=== PATIENT | female | born 1970 | race Caucasian/White ===

== ENCOUNTER 2018-01-08 00:05 | Observation (INO) | payer MEDICAID ==
[2018-01-08] VITALS (11 sets, daily range): BP systolic 124–161; BP diastolic 58–73; PULSE 88–126; RESP 18–20; TEMP 96–98.9; O2SAT 96–98
[~2018-01-08 00:05] MED LIST: ACETAMINOPHEN 325 MG TAB PO PRN; KETOROLAC TROMETHAMINE 30 MG/ML (IVP) VIAL IV PUSH PRN; NALOXONE HCL 0.4 MG/ML AMP IV PUSH PRN; ONDANSETRON HCL 4 MG/2 ML VIAL IVP PRN; RESP: ALBUTEROL 2.5 MG/IPRATROPIUM 0.5 MG NEB (PRN) NEB; SODIUM CHLORIDE 0.9% FLUSH 10 ML FLUSH IV FLUSH PRN; SPIRCAP INH; VENTAER INH
[2018-01-08] MEDS: HEPARIN SODIUM - SQ 10,000 UNITS/ML VIAL SQ SCH ×4 (00:25→23:51)
[2018-01-08] MEDS ORDERED: RESP: ALBUTEROL 2.5 MG/IPRATROPIUM 0.5 MG NEB (SCH) NEB (04:00)
[2018-01-08] MEDS: SODIUM CHLORIDE 0.9% FLUSH 10 ML FLUSH IV FLUSH SCH ×2 (07:49→20:32)
--- NOTE | 2018-01-08 09:10 | HHI.HP ---
[facility] Unknown Admission Diagnosis Diagnoses: Chief Complaint: Lower extremity edema, shortness of breath Travel History International Travel<30 Days: No Contact w/Intl Traveler <30 Da: No Traveled to Known Affected Are: No History of Present Illness Ms. Reyes is a pleasant 47-year-old female with a history of COPD who went to the emergency department in [place] due to bilateral lower extremity edema especially on the left side. She has noticed bilateral lower extremity edema for about 2-3 months. She has also become more short of breath for 2-3 months. She has some baseline shortness of breath from COPD but she has not noticed much worsening in the last 2-3 months. She denies any history of any heart disease. No recent trauma, surgery, recent immobilization. Her symptoms have been particularly worse in the last 2 days which prompted this admission. In [place] patient underwent chest x-ray as well as CT PE study. Radiological studies indicated no pulmonary embolism. However it shows evidence of granulomatous exposure in the lungs and moderate severity central lobar emphysema. Due to concern over tuberculosis versus histoplasmosis, patient was transferred to [place] for further evaluation and treatment. Patient denies any out of the country travel, any exposure to possible tuberculosis patients. She was working in lawn maintenance. And she does deal with [employer]. Review of Systems Except as stated in HPI: all other systems reviewed are Neg Past Family Social History Past Medical History COPD, anxiety Past Surgical History No previous surgeries Reported Medications Spiriva Handihaler (Tiotropium Inh) 18 Mcg Cap 18 Mcg INH DAILY 1 capsule = 18 mcg Ventolin Hfa 18 GM Inh (Albuterol Sulfate) 90 Mcg/Act Aer 1 Puff INH Q4H PRN Allergies: Coded Allergies: Penicillins (Verified Allergy, Severe, HIVES, 01/07/18) Family History Mother and sister with diabetes mellitus Social History Should quit smoking 3 years ago. Has a history of 40 pack years smoking. Drinks alcohol occasionally. Denies using illicit drugs. Physical Exam Vital Signs Vital Signs Date Time Temp Pulse Resp B/P (MAP) Pulse Ox O2 Delivery O2 Flow Rate FiO2 01/08/18 04:00 98.9 126 20 147/65 (92) 96 01/08/18 01:30 97.8 115 20 124/58 (80) 96 01/08/18 01:30 112 01/08/18 00:35 98 21 Physical Exam GENERAL: This is a well-nourished, well-developed patient, in no apparent distress. Somewhat anxious appearance. SKIN: No rashes, ecchymoses or lesions. Warm and dry. HEAD: Atraumatic. Normocephalic. No temporal or scalp tenderness. EYES: Pupils equal round and reactive. No injection or drainage. ENT: Nose without bleeding, purulent drainage or septal hematoma. Airway patent. NECK: Trachea midline. No lymphadenopathy. Supple, nontender, no meningeal signs. CARDIOVASCULAR: Regular rhythm, tachycardic without murmurs, gallops, or rubs. No JVD. RESPIRATORY: Clear to auscultation. Breath sounds equal bilaterally. No wheezes , rales, or rhonchi. GASTROINTESTINAL: Abdomen soft, non-tender, nondistended. No guarding. MUSCULOSKELETAL: Extremities without clubbing, cyanosis, or edema. Mild edema noted on the left ankle area. No pitting edema appreciated. NEUROLOGICAL: Awake and alert. Cranial nerves II through XII intact. No focal neurological deficits. Normal speech. Imaging 01/07/2018 chest x-ray shows miliary nodules possible TB. 01/07/2018 CT PE study shows no pulmonary embolism. Also shows evidence of granulomatous exposure in the lungs and moderate severity centrilobular emphysema. Goiter. Caprini VTE Risk Assessment Caprini VTE Risk Assessment: Mod/High Risk (score >= 2) Caprini Risk Assessment Model Point Value = 1 Point Value = 2 Point Value = 3 Point Value = 5 Age 41-60 Minor surgery BMI > 25 kg/m2 Swollen legs Varicose veins or History of unexplained or recurrent spontaneous Oral contraceptives or hormone replacement Sepsis (< 1 month) Serious lung disease, including pneumonia (< 1 month) Abnormal pulmonary function Acute myocardial infarction Congestive heart failure (< 1 month) History of inflammatory bowel disease Medical patient at bed rest Age 61-74 Arthroscopic surgery Major open surgery (> 45 min) Laparoscopic surgery (> 45 min) Malignancy Confined to bed (> 72 hours) Immobilizing plaster cast Central venous access Age >= 75 History of VTE Family history of VTE Factor V Leiden Prothrombin [id number] Lupus anticoagulant Anticardiolipin antibodies Elevated serum homocysteine Heparin-induced thrombocytopenia Other congenital or acquired thrombophilia Stroke (< 1 month) Elective arthroplasty Hip, pelvis, or leg fracture Acute spinal cord injury (< 1 month) Prophylaxis Regimen Total Risk Factor Score Risk Level Prophylaxis Regimen 0-1 Low Early ambulation 2 Moderate Order ONE of the following: *Sequential Compression Device (SCD) *Heparin 5000 units SQ BID 3-4 Higher Order ONE of the following medications: *Heparin 5000 units SQ TID *Enoxaparin/Lovenox 40 mg SQ daily (WT < 150 kg, CrCl > 30 mL/min) *Enoxaparin/Lovenox 30 mg SQ daily (WT < 150 kg, CrCl > 10-29 mL/min) *Enoxaparin/Lovenox 30 mg SQ BID (WT < 150 kg, CrCl > 30 mL/min) AND/OR *Sequential Compression Device (SCD) 5 or more Highest Order ONE of the following medications: *Heparin 5000 units SQ TID (Preferred with Epidurals) *Enoxaparin/Lovenox 40 mg SQ daily (WT < 150 kg, CrCl > 30 mL/min) *Enoxaparin/Lovenox 30 mg SQ daily (WT < 150 kg, CrCl > 10-29 mL/min) *Enoxaparin/Lovenox 30 mg SQ BID (WT < 150 kg, CrCl > 30 mL/min) AND *Sequential Compression Device (SCD) Assessment and Plan Problem List: (1) COPD (chronic obstructive pulmonary disease) ICD Code: J44.9 - Chronic obstructive pulmonary disease, unspecified Status: Chronic (2) Granulomatous disease ICD Code: D71 - Functional disorders of polymorphonuclear neutrophils Assessment and Plan Ms. Reyes is a pleasant 47-year-old female with a history of COPD who presents to the emergency department due to much worsening shortness of breath, some lower extremity edema. Radiological studies indicated miliary calcifications possibly granulomatous exposure. Possibility of TB and histoplasmosis was raised. Patient was subsequently transferred to [facility] for further evaluation and treatment. -Possible fungal infection of the lungs. -We will consult infectious disease for further evaluation and recommendations. -QuantiFERON gold ordered, histoplasmosis antigen (serum and urine) pending. -Patient is currently hemodynamically stable. Will await to get some initial results before starting antifungal therapy. -Patient's lung findings are likely chronic. Her respiratory difficulties are likely related to COPD, tachycardia induced by hyperthyroidism. -COPD -Due to tachycardia we will continue ipratropium nebulizer treatment. -Continue Symbicort. -Patient is currently on room air. Supplemental oxygen to keep O2 saturation above 90%. -Anxiety -we will start patient on Klonopin 0.5 mg every 8 hours as needed. -Goiter -incidental finding on CT PE study. Will check TSH, free T4 and free T3. Full code. Heparin subcutaneous. Priya Lawler DO Jan 08, 2018 9:10 am
[2018-01-08 09:24] LABS: AUTOMATED NEUTROPHIL # 3.2 TH/MM3 (1.8-7.7); BASOPHIL % 0.3 % (0.0-2.0); EOSINOPHIL # 0.1 TH/MM3 (0-0.4); HEMATOCRIT 37.3 % (35.0-46.0); HEMOGLOBIN 12.5 GM/DL (11.6-15.3); LYMPHOCYTE # 2.6 TH/MM3 (1.0-4.8); MEAN CELL VOLUME 80.2 FL (80.0-100.0); MEAN CORPUSCULAR HEMOGLOBIN 26.8 PG (27.0-34.0); MEAN CORPUSCULAR HGB CONC 33.4 % (32.0-36.0); MEAN PLATELET VOLUME 8.2 FL (7.0-11.0); MONO % 11.6 % (0.0-8.0); MONOCYTE # 0.8 TH/MM3 (0-0.9); NEUT % 47.1 % (16.0-70.0); PLATELET COUNT 244 TH/MM3 (150-450); RED BLOOD COUNT 4.65 MIL/MM3 (4.00-5.30); RED CELL DISTRIBUTION WIDTH 14.3 % (11.6-17.2); WHITE BLOOD COUNT 6.7 TH/MM3 (4.0-11.0)
[2018-01-08] MEDS: RESP: IPRATROPIUM 0.5 MG/2.5 ML NEB NEB SCH ×3 (09:39→21:40)
[2018-01-08 10:00] LABS: CALCIUM 9.1 MG/DL (8.5-10.1)
[2018-01-08] MEDS ORDERED: clonazePAM 0.5 MG TAB PO PRN (10:00)
[2018-01-08 10:01] LABS: BICARBONATE 25.9 MEQ/L (21.0-32.0)
[2018-01-08 10:05] LABS: CREATININE 0.35 MG/DL (0.50-1.00)
--- NOTE | 2018-01-08 15:28 | ECHRPT ---
Indication: sob CONCLUSIONS The left ventricular systolic function is normal with an estimated ejection fraction in the range of 55-60%. Trace mitral valve regurgitation. There is mild tricuspid valve regurgitation. BP: / HR: Rhythm: MEASUREMENTS (Male / Female) Normal Values Technical Quality:Fair 2D ECHO LV Diastolic Diameter PLAX 4.0 cm 4.2 - 5.9 / 3.9 - 5.3 cm LV Systolic Diameter PLAX 2.9 cm IVS Diastolic Thickness 0.8 cm 0.6 - 1.0 / 0.6 - 0.9 cm LVPW Diastolic Thickness 1.0 cm 0.6 - 1.0 / 0.6 - 0.9 cm LV Relative Wall Thickness 0.4 RV Internal Dim ED PLAX 2.6 cm M-MODE Aortic Root Diameter MM 2.6 cm LA Systolic Diameter MM 3.6 cm LA Ao Ratio MM 1.4 AV Cusp Separation MM 1.6 cm DOPPLER Mitral E Point Velocity 111.0 cm/s Mitral A Point Velocity 93.8 cm/s Mitral E to A Ratio 1.2 LV E' Lateral Velocity 12.2 cm/s Mitral E to LV E' Lateral Ratio 9.1 LV E' Septal Velocity 10.2 cm/s Mitral E to LV E' Septal Ratio 10.9 TR Peak Velocity 346.0 cm/s TR Peak Gradient 47.9 mmHg Right Atrial Pressure 10.0 mmHg Pulmonary Artery Systolic Pressu 57.9 mmHg Right Ventricular Systolic Press 57.9 mmHg FINDINGS LEFT VENTRICLE Normal left ventricular size. The left ventricular systolic function is normal with an estimated ejection fraction in the range of 55-60%. No regional wall motion abnormalities are present. RIGHT VENTRICLE Normal right ventricular size and systolic function. LEFT ATRIUM The left atrial size is normal. RIGHT ATRIUM The right atrial size is normal. ATRIAL SEPTUM Normal atrial septal thickness without atrial level shunting by limited color doppler interrogation. AORTA The aortic root and proximal ascending aorta are normal in size on limited imaging. MITRAL VALVE Structurally normal mitral valve. Trace mitral valve regurgitation. No mitral valve stenosis. AORTIC VALVE Trileaflet aortic valve. No aortic valve stenosis or regurgitation. TRICUSPID VALVE Structurally normal tricuspid valve. There is mild tricuspid valve regurgitation. The estimated pulmonary arterial pressure is 45 mmHg (remeasured) PULMONARY VALVE No pulmonary valve regurgitation or stenosis. VESSELS The inferior vena cava is normal in size. PERICARDIUM No pericardial effusion. Forest Diaz DO (Electronically Signed) Final Date:08 January 2018 15:26
[2018-01-08] MEDS: LEVOFLOXACIN 750 MG TAB PO SCH (16:06)
[2018-01-08] MEDS ORDERED: ATENOLOL 50 MG TAB PO ONE (17:00)
[2018-01-08 18:29] LABS: FREE T3 26.93 PG/ML (2.18-3.98)
[2018-01-08 18:35] LABS: FREE T4 GREATER THAN 8.00 NG/DL (0.76-1.46)
--- NOTE | 2018-01-08 18:49 | PD.CONS ---
History of Present Illness Service ID CONSULT Consult Requested By DR DORA SANDS Reason for Consult ABNORMAL CHEST CT Primary Care Physician Unknown Diagnoses: History of Present Illness 47 YR OLD FEMALE ADMITTED WITH SHORTNESS OF BREATH AND DRY COUGH GETTING PROGRESSIVELY WORSE OVER THE LAST 2-3 MONTHS. SHE HAS A HISTORY OF SMOKING AND HAS BEEN DIAGNOSED WITH COPD. SHE COULD NOT AFFORD HER INHALER AND THOUGHT IT WAS INTIALLY A RESULT OF THAT HOWEVER SHE STARTED TO HAVE NIGHT SWEATS WITH 15LB WEIGHTLOSS. SHE CAME IN AND WAS FOUND TO HAVE CHEST CT WITH GRANULOMAS. ID CONSULTED TO HELP WITH DIAGNOSIS AND MANAGEMENT. SHE HAS A CAT AT HOME AND STATES SHE HAS BEEN SCRATCHED. Review of Systems Constitutional: COMPLAINS OF: Weight loss, Night Sweats, DENIES: Fever Eyes: DENIES: Eye inflammation Ears, nose, mouth, throat: DENIES: Nasal discharge Respiratory: COMPLAINS OF: Cough, DENIES: Wheezing Cardiovascular: COMPLAINS OF: Dyspnea on Exertion Musculoskeletal: DENIES: Joint Swelling Integumentary: DENIES: Nail changes Neurologic: DENIES: Localized weakness Psychiatric: DENIES: Mood changes Past Family Social History Allergies: Coded Allergies: Penicillins (Verified Allergy, Severe, HIVES, 01/07/18) Past Medical History Past Medical History COPD, anxiety Past Surgical History Past Surgical History No previous surgeries Reported Medications Reported Medications Spiriva Handihaler (Tiotropium Inh) 18 Mcg Cap 18 Mcg INH DAILY 1 capsule = 18 mcg Ventolin Hfa 18 GM Inh (Albuterol Sulfate) 90 Mcg/Act Aer 1 Puff INH Q4H PRN Family History Allergies: Coded Allergies: Penicillins (Verified Allergy, Severe, HIVES, 01/07/18) Family History Mother and sister with diabetes mellitus Social History Social History Should quit smoking 3 years ago. Has a history of 40 pack years smoking. Drinks alcohol occasionally. Denies using illicit drugs. 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 She has a cat at home Physical Exam Vital Signs Vital Signs Date Time Temp Pulse Resp B/P (MAP) Pulse Ox O2 Delivery O2 Flow Rate FiO2 01/08/18 16:00 97.2 106 18 151/72 (98) 97 01/08/18 12:00 97.7 111 18 161/73 (102) 97 01/08/18 09:41 98 21 01/08/18 08:10 111 01/08/18 08:00 98.8 105 18 145/68 (93) 96 01/08/18 04:00 98.9 126 20 147/65 (92) 96 01/08/18 01:30 97.8 115 20 124/58 (80) 96 01/08/18 01:30 112 01/08/18 00:35 98 21 Physical Exam GENERAL: This is a well-nourished, well-developed patient, in no apparent distress. Appears older than stated age SKIN: No rashes, ecchymoses or lesions. Cool and dry. HEAD: Atraumatic. Normocephalic. EYES: Pupils equal round and reactive. Extraocular motions intact. ENT: Nose without bleeding, purulent drainage or septal hematoma. Throat without erythema, tonsillar hypertrophy or exudate. Uvula midline. Airway patent. Full dentures NECK: Trachea midline. No JVD or lymphadenopathy. Supple, nontender, no meningeal signs. CARDIOVASCULAR: Regular rate and rhythm without murmurs, gallops, or rubs. RESPIRATORY: Clear to auscultation. Breath sounds equal bilaterally. No wheezes , rales, or rhonchi. GASTROINTESTINAL: Abdomen soft, non-tender, nondistended. No hepato-splenomegaly , or palpable masses. No guarding. MUSCULOSKELETAL: Extremities without clubbing, cyanosis, or edema. No joint tenderness, effusion, or edema noted. No calf tenderness. Negative Homans sign bilaterally. NEUROLOGICAL: Awake and alert. Cranial nerves II through XII intact. Motor and sensory grossly within normal limits. Five out of 5 muscle strength in all muscle groups. Normal speech. Laboratory Laboratory Tests Test 01/08/18 08:45 01/08/18 10:25 01/08/18 11:15 White Blood Count 6.7 Red Blood Count 4.65 Hemoglobin 12.5 Hematocrit 37.3 Mean Corpuscular Volume 80.2 Mean Corpuscular Hemoglobin 26.8 Mean Corpuscular Hemoglobin Concent 33.4 Red Cell Distribution Width 14.3 Platelet Count 244 Mean Platelet Volume 8.2 Neutrophils (%) (Auto) 47.1 Lymphocytes (%) (Auto) 39.0 Monocytes (%) (Auto) 11.6 Eosinophils (%) (Auto) 2.0 Basophils (%) (Auto) 0.3 Neutrophils # (Auto) 3.2 Lymphocytes # (Auto) 2.6 Monocytes # (Auto) 0.8 Eosinophils # (Auto) 0.1 Basophils # (Auto) 0.0 CBC Comment DIFF FINAL Differential Comment Blood Urea Nitrogen 12 Creatinine 0.35 Random Glucose 125 Calcium Level 9.1 Sodium Level 141 Potassium Level 3.7 Chloride Level 107 Carbon Dioxide Level 25.9 Anion Gap 8 Estimat Glomerular Filtration Rate 199 Free Thyroxine GREATER THAN 8.00 Free Triiodothyronine (T3) pg/dL 26.93 Thyroid Stimulating Hormone 3rd Gen LESS THAN 0.005 Result Diagram: 01/08/1845 01/08/1845 Assessment and Plan Problem List: (1) COPD (chronic obstructive pulmonary disease) ICD Codes: J44.9 - Chronic obstructive pulmonary disease, unspecified Status: Chronic Plan: Continue Levofloxacin for now (2) Granulomatous lung disease ICD Codes: J84.10 - Pulmonary fibrosis, unspecified Plan: Will check TB Quantiferon test Check Histoplasma antigen Check Fungal antibodies (3) Hyperthyroidism ICD Codes: E05.90 - Thyrotoxicosis, unspecified without thyrotoxic crisis or storm Bela Phelps MD Jan 08, 2018 18:49
--- NOTE | 2018-01-08 19:44 | MB ---
cc: Reagan Kirk MD DATE OF CONSULT: REASON FOR CONSULTATION: COPD exacerbation, question tuberculosis. HISTORY OF PRESENT ILLNESS: Patient is a 47-year-old female who was admitted with a persistent cough, increasing shortness of breath for 2 months or so now. The patient has no expectoration, no fever, no chills. Has known history of COPD in the past. CT scan of the chest was undertaken without evidence of pulmonary emboli; however, the patient had multiple calcified nodularity. This was compatible granulomas. PAST MEDICAL HISTORY: COPD. MEDICATIONS AT HOME: Spiriva once daily, Ventolin p.r.n. ALLERGIES: PENICILLIN. FAMILY HISTORY: Positive for diabetes, hypertension. SOCIAL HISTORY: Used to smoke a pack a day for 30 years, stopped 3 years ago. Drinks alcohol socially. No TB, no industrial exposure. Does not use drugs. PHYSICAL EXAMINATION: GENERAL: Patient is alert. VITAL SIGNS: Temperature 98.8, pulse is 90, respirations 20, blood pressure 140/68, oxygen saturation 96% on room air. HEENT: Unremarkable. Eyes without icterus. NECK: Without adenopathy. Thyroid not enlarged, but central. CHEST: Few scattered rhonchi bilaterally. CARDIAC: PMI distant. S1, S2 audible. No murmur, no rub. ABDOMEN: Lax. Audible bowel sounds. EXTREMITIES: No clubbing, cyanosis or edema. SKIN: Normal. No lymphadenopathy. LABORATORY DATA: White count 6.7, hemoglobin 12.5, hematocrit 37, platelets 244,000. Sodium 141, potassium 3.7, BUN 12, creatinine 0.35. IMPRESSION: 1. Chronic obstructive pulmonary disease in exacerbation. 2. Granulomatous disease by CT scan of the chest. PLAN: Patient has been started on bronchodilator therapy and appropriately so. Infectious disease has been consulted to assure the absence of underlying fungal or bacterial process, especially TB, although given the presence of calcified granulomata in both lungs, this is likely a chronic process dating back to many years. Would continue bronchodilators, antibiotics and above. I will follow the patient's course along with you, and depending on progress, proceed further. I do thank you for asking me to partake in Ms. Reyes's care. Reagan Kirk MD WWW/VILMA , 07:11 PM , 07:43 PM
[2018-01-08] MEDS: BUDESONIDE-FORMOTEROL 160/4.5 MCG INHALER INH SCH (20:29)
[2018-01-09] VITALS: BP 130/60; PULSE 87; RESP 20; TEMP 96.9; O2SAT 97
[2018-01-09] MEDS: RESP: IPRATROPIUM 0.5 MG/2.5 ML NEB NEB SCH ×2 (03:52→09:18)
[2018-01-09 04:00] VITALS: BP 144/63; PULSE 91; RESP 20; TEMP 97; O2SAT 96
[2018-01-09 08:00] VITALS: BP 132/60; PULSE 90; RESP 20; TEMP 96.1; O2SAT 96
[2018-01-09] MEDS ORDERED: ATENOLOL 50 MG TAB PO SCH (09:00)
--- NOTE | 2018-01-09 09:07 | HHI.PR ---
Subjective Remarks Follow up for hyperthyroidism, COPD exacerbation. Patient is on room air. Not as shaky. No fever, chills. No productive cough. Objective Vitals Vital Signs Date Time Temp Pulse Resp B/P (MAP) Pulse Ox O2 Delivery O2 Flow Rate FiO2 01/09/18 08:00 96.1 90 20 132/60 (84) 96 01/09/18 04:00 97.0 91 20 144/63 (90) 96 01/09/18 00:00 96.9 87 20 130/60 (83) 97 01/08/18 23:53 88 01/08/18 21:40 98 21 01/08/18 20:00 96.0 88 20 135/64 (87) 97 01/08/18 16:00 97.2 106 18 151/72 (98) 97 01/08/18 12:00 97.7 111 18 161/73 (102) 97 01/08/18 09:41 98 21 I/O 01/08/18 01/08/18 01/08/18 01/09/18 01/09/18 01/09/18 07:00 15:00 23:00 07:00 15:00 23:00 Intake Total 480 ml 620 ml 480 ml Balance 480 ml 620 ml 480 ml Intake Oral 480 ml 620 ml 480 ml # Voids 2 3 2 # Bowel Movements 1 1 1 Result Diagram: 01/08/18 0845 01/08/18 0845 Objective Remarks GENERAL: AOx3, NAD SKIN: Warm and dry. HEAD: Normocephalic. EYES: No scleral icterus. No injection or drainage. NECK: Supple, trachea midline. No JVD or lymphadenopathy. CARDIOVASCULAR: Regular rate and rhythm without murmurs, gallops, or rubs. RESPIRATORY: Breath sounds equal bilaterally. No accessory muscle use. GASTROINTESTINAL: Abdomen soft, non-tender, nondistended. MUSCULOSKELETAL: No cyanosis, or edema. BACK: Nontender without obvious deformity. No CVA tenderness. Procedures None. A/P Problem List: (1) COPD (chronic obstructive pulmonary disease) ICD Code: J44.9 - Chronic obstructive pulmonary disease, unspecified Status: Chronic (2) Granulomatous disease ICD Code: D71 - Functional disorders of polymorphonuclear neutrophils (3) Hyperthyroidism ICD Code: E05.90 - Thyrotoxicosis, unspecified without thyrotoxic crisis or storm Assessment and Plan Ms. Reyes is a pleasant 47-year-old female with a history of COPD who presents to the emergency department due to much worsening shortness of breath, some lower extremity edema. Radiological studies indicated miliary calcifications possibly granulomatous exposure. Possibility of TB and histoplasmosis was raised. Patient was subsequently transferred to [facility] for further evaluation and treatment. -Possible fungal infection of the lungs. -ID and pulmonary consulted. I discussed with ID - we do not believe this is TB. ID cleared for discharge. No isolation required. -QuantiFERON gold ordered, histoplasmosis antigen (serum and urine) pending. -Patient's lung findings are likely chronic. Her respiratory difficulties are likely related to COPD, tachycardia induced by hyperthyroidism. -COPD -Continue Symbicort, breathing tx with Atrovent. Will continue Spiriva on discharge. -Patient is currently on room air. Supplemental oxygen to keep O2 saturation above 90%. -Anxiety -we will start patient on Klonopin 0.5 mg every 8 hours as needed. -Hyperthyroidism - TSH 0.005, Free T4 greater than 8.0, Free T3 26.93. We started patient on Atenolol 50mg Qday yesterday, will continue. - Tachycardia is improved. - Start Methimazole 10mg BID. - Outpatient consult with Endocrinology with new [place] Licensed Certified Orthotist. Full code. Heparin subcutaneous. Discharge patient to home Condition on discharge: Improved Regular Diet as tolerated Ad [employer]iki activity Rx written: New Medications: Atenolol 50 Mg Tab Clonazepam (Klonopin) 0.5 Mg Tab Levofloxacin (Levaquin) 750 Mg Tablet Methimazole 10 Mg Tab [Budeson-Formot 160-4.5 Mcg Inh] (Symbicort 160-4.5 Mcg Inh) 60 PUFF AERO Continued Medications: Albuterol 18 GM Inh (Ventolin Hfa 18 GM Inh) 90 Mcg/Act Aer Tiotropium Inh (Spiriva Handihaler) 18 Mcg Cap 1 capsule = 18 mcg Follow-up with primary care physician within one week. Endocrinology within two weeks. Outpatient Thyroid Ultrasound. Priya Lawler DO Jan 09, 2018 09:07
[2018-01-09 09:20] VITALS: O2SAT 94
[2018-01-09] MEDS: SODIUM CHLORIDE 0.9% FLUSH 10 ML FLUSH IV FLUSH SCH (09:25)
[2018-01-09] MEDS: BUDESONIDE-FORMOTEROL 160/4.5 MCG INHALER INH SCH (09:25)
[2018-01-09] MEDS: HEPARIN SODIUM - SQ 10,000 UNITS/ML VIAL SQ SCH (09:25)
[2018-01-09] MEDS ORDERED: ATEN50TA PO (10:21)
[2018-01-09] MEDS ORDERED: SPIRCAP INH (10:21)
[2018-01-09] MEDS ORDERED: LEVA750T9 PO (10:21)
[2018-01-09] MEDS ORDERED: Budeson-Formot 160-4.5 Mcg Inh INH (10:21)
[2018-01-09] MEDS ORDERED: VENTAER INH (10:21)
[2018-01-09] MEDS ORDERED: CLON.5 PO (10:21)
[2018-01-09] MEDS ORDERED: METHI10 PO (10:27)
[2018-01-09] MEDS: LEVOFLOXACIN 750 MG TAB PO SCH (10:50)
[2018-01-09] MEDS ORDERED: METHIMAZOLE 10 MG TAB PO SCH (21:00)
[2018-01-09 22:10] LABS: HISTOPLASMA ANTIGEN UR RESULT Negative (Negative)
[2018-01-10 14:28] LABS: MITOGEN MINUS NIL RESULT >10.00 IU/mL; NIL RESULT 0.02 IU/mL; QUANTIFERON TB GOLD + RESULT Negative (Negative); TB ANTIGEN MINUS NIL 0.05 IU/mL
[2018-01-10 16:37] LABS: BARTONELLA HENSELAE IGG <1:128 titer (<1:128); BARTONELLA HENSELAE IGM <1:20 titer (<1:20); BARTONELLA QUINTANA IGG <1:128 titer (<1:128); BARTONELLA QUINTANA IGM <1:20 titer (<1:20)
[2018-01-13 23:51] LABS: ASPERGILLUS FLAVUS AB NEGATIVE (NEGATIVE); ASPERGILLUS FUMIGATUS AB NEGATIVE (NEGATIVE); ASPERGILLUS NIGER AB NEGATIVE (NEGATIVE)
== END 2018-01-09 11:24 | disposition home or self-care (01) ==
LOC: PHEDDLT 00:05 → PH3B 00:15
PROVIDERS: ADMIT Hospitalist; ATTEND Hospitalist
DX: J44.1 Chronic obstructive pulmonary disease with (acute) exacerbation (principal); D71 Functional disorders of polymorphonuclear neutrophils; E05.90 Thyrotoxicosis, unspecified without thyrotoxic crisis or storm; F41.9 Anxiety disorder, unspecified; J84.10 Pulmonary fibrosis, unspecified; E04.9 Nontoxic goiter, unspecified; R60.0 Localized edema; R00.0 Tachycardia, unspecified; R06.02 Shortness of breath; F43.10 Post-traumatic stress disorder, unspecified; Z87.891 Personal history of nicotine dependence
CPT/HCPCS: 71045; 71275; 80048; 80053; 83880; 84439; 84443; 84445; 84481; 84703; 85025; 85379; 86480; 86606; 86611; 87015; 87385; 93005; 93306; 94640; 94664; 96372; 99285; G0378; J1644; J7644; Q9967